=== PATIENT | female | born 1980 ===

== ENCOUNTER 2020-06-20 20:29 | Emergency (ER) | payer OTHER ==
--- NOTE | 2020-06-20 20:55 | EDM.PDOC ---
ED HPI GENERAL MEDICAL PROBLEM - General Chief Complaint: Skin Complaint Stated Complaint: HIVALLEN Time Seen by Provider: 06/20/20 20:44 - History of Present Illness INITIAL COMMENTS - FREE TEXT/NARRATIVE: History of present illness: [] Developed a rash yesterday. It is pruritic. It is over most of her body. Even the soles of her feet itch but they are not red. The patient ate okra the day before the rash developed. It was the first time she ever ate it. Unfortunately she liked it. The patient has a tampon in but no fever or chills and is not sick. Review of systems: As per history of present illness and below otherwise all systems reviewed and negative. Past medical history: As per history of present illness and as reviewed below otherwise noncontributory. Surgical history: As per history of present illness and as reviewed below otherwise noncontributory. Social history: No reported history of drug or alcohol abuse. Family history: As per history of present illness and as reviewed below otherwise no ncontributory. Physical exam: Constitutional - well developed, well-nourished and in no acute distress HEENT - normocephalic, no evidence of trauma - external nose and mouth normal - no mass in neck and no JVD - mucosae moist EYES - full EOM, PERRL, no icterus - no evidence of inflammation, injection, or drainage Respiratory - no respiratory distress, equal bilateral expansion, lungs clear to auscultation and no abnormal lung sounds Cardiovascular - Regular Rhythm with S1 and S2 appreciated and no murmur, gallop or rub. GI - abdomen soft without distension or organomegaly - normal bowel sounds - no guard or rebound Musculoskeletal no gross deformity of long bones or joints - no tenderness, swelling or edema Neurologic - Alert and oriented times four - CN II-XII grossly intact - motor sensory and coordination symmetrically normal Psychiatric - appropriate mood and affect with normal thought content Hematologic - No petechiae or purpura - mucosa appropriate color and sclera not pale - normal nail bed color and refill Integument -the patient has a red blanching rash that is confluent macules and papules that covered most of her skin surface but is not actually red on the gris ttom of the feet but her soles its according to her. No evidence of trauma - normal turgor Diagnostics: [] Therapeutics: [] Impression: [] Plan: [] Definitive disposition and diagnosis as appropriate pending reevaluation and review of above. - Related Data Allergies Allergy/AdvReac Type Severity Reaction Status Date / Time Penicillins Allergy Rash Verified 06/20/20 20:50 Home Meds: Home Meds methylPREDNISolone [Medrol Dose Pack] 4 mg PO DAILY #21 tab 06/20/20 [Rx] Past Medical History - Past Health History Medical/Surgical History: Denies Medical/Surgical History ED ROS GENERAL - Review of Systems Review Of Systems: Comprehensive ROS is negative, except as noted in HPI. ED EXAM, SKIN/RASH Exam: See Below Text/Narrative:: My history and physical is in the HPI Departure - Departure Time of Disposition: 21:30 Disposition: Home, Self-Care 01 Condition: Good Clinical Impression: Atopic dermatitis - Discharge Information Instructions: Atopic Dermatitis Referrals: Kimberlee Nieto NP [Primary Care Provider] - Additional Instructions: Gel is [id number]. It can make you sleepy. 25 to 50 mg 3 or 4 times a day your dose. If not improving with treatment please see the copy supervisor. If you get a fever you must stop tampons remove your tampon and if you are sick see a doctor right away. It would be safer to use pads. Toxic shock can develop and be very serious can happen quickly. [facility] [address] [place] [address], [address] [place] [address] The following information is given to patients seen in the emergency department who are being discharged to home. This information is to outline your options for follow-up care. We provide all patients seen in our emergency department with a follow-up referral. The need for follow-up, as well as the timing and circumstances, are variable depending upon the specifics of your emergency department visit. If you don't have a primary care physician on staff, we will provide you with a referral. We always advise you to contact your personal physician following an emergency department visit to inform them of the circumstance of the visit and for follow-up with them and/or the need for any referrals to a consulting specialist. The emergency department will also refer you to a specialist when appropriate. This referral assures that you have the opportunity for follow-up care with a specialist. All of these measure are taken in an effort to provide you with optimal care, which includes your follow-up. Under all circumstances we always encourage you to contact your private physician who remains a resource for coordinating your care. When calling for follow-up care, please make the office aware that this follow-up is from your recent emergency room visit. If for any reason you are refused follow-up, please contact the [facility] Department at and asked to speak to the emergency department charge nurse.
[2020-06-20] MEDS ORDERED: Dexamethasone 10 MG/ML SDV IM STA (21:00)
[2020-06-20] MEDS ORDERED: diphenhydrAMINE 50 MG/ML SDV IM ONE (21:01)
[2020-06-20] MEDS ORDERED: Dexamethasone 10 MG/ML SDV IM ONE (21:06)
[2020-06-20 21:38] VITALS: BP 122/65; PULSE 66
== END 2020-06-20 21:34 | disposition home or self-care (01) ==
LOC: MW.ED 20:29
DX: L20.9 Atopic dermatitis, unspecified (principal); Z88.0 Allergy status to penicillin
CPT/HCPCS: 96372; 99282; J1100; J1200